=== PATIENT | female | born 1970 | race Caucasian/White ===

== ENCOUNTER → 2023-06-22 | Outpatient (CLI) | payer BC ==
--- NOTE | 2023-06-22 15:30 | P.SLEEP ---
History of Present Illness DATE: 06/22/2022 CONSULTATION/NEW PATIENT EVALUATION HISTORY OF PRESENT ILLNESS/SLEEP-WAKE EVALUATION: 53-year-old lady had been evaluated to sleep center had been evaluated in the sleep center for possible obstructive sleep apnea hypopnea syndrome. SLEEP SCHEDULE: Usually sleep schedule from 11 PM to 6:30 AM on weekdays and from midnight until 8:30 AM on weekend. FALLING ASLEEP: Patient has difficulties with falling asleep, although no TV in bedroom. DURING SLEEP: Patient sleeps with extremely loud snoring and wakes up from sleep more than 5 times with one episode of nocturia at night. Positive history of panic attacks. No history of hypnogogical hallucinations, sleep paralysis, or cataplexy. DURING THE DAY/WAKE STATE: In the morning patient wake up tired, has difficulties to place attention, has episodes of anxiety. [place] sleepiness scale is in normal range 6. Patient take naps on weekends. PAST MEDICAL HISTORY: Hypertension, breast cancer. PAST SURGICAL HISTORY: Bilateral mastectomy, , cholecystectomy. MEDICATIONS: Losartan 50 mg once a day, Cymbalta 30 mg once a day, amitriptyli ne 10 mg once a day, lamotil 2.5 mg twice a day. SOCIAL HISTORY: Negative for smoking, alcohol consumption occasional. FAMILY HISTORY: Hypertension, insomnia. REVIEW OF SYSTEMS: Loud snoring, multiple awakenings from sleep. No fevers. No double vision. No recent chest pain. No shortness of breath. No abdominal pain. No bleeding episodes. No blood in urine. No seizure episodes. PHYSICAL EXAMINATION: GENERAL: A pleasant patient without any distress. VITAL SIGNS: BP 156/72 , HR 122 , RR 12 , weight 211.0 pounds, height 5 foot 3 inches, body mass index 37.5 . HEENT: PERRLA, EOMI. Evaluation of oropharynx showed tongue protrudes midline, low position of soft palate Mallampati 3, retrognathia about 3 mm. NECK: Supple. No JVD. Thyroid is not palpable. 15 inches in circumference. LUNGS: Clear to percussion and to auscultation. Good air exchange. No wheezing or rhonchi. HEART: S1, S2 regular. No murmurs, gallops or rubs. ABDOMEN: Soft and nontender. Bowel sounds are present. No organomegaly appreciated. EXTREMITIES: No clubbing or cyanosis. MIRROR MAKER: Awake, alert, and oriented x3. Cranial nerves 2 to 7 intact. There is no fasciculation or atrophy noted. No focal deficits observed. ASSESSMENT: 1. Loud snoring, multiple awakenings from sleep, low position of soft palate Mallampati 3. Obstructive sleep apnea hypopnea syndrome. 2. Obesity, BMI 37.5. 3. History of right breast cancer, status post bilateral mastectomy. 4. Hypertension. 5 status post cholecystectomy. 6 . Status post . 7. 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 PLAN: 1. Polysomnography for evaluation of patient's breathing during sleep. 2. Following plan after reviewing sleep study. 3. Preferable position during sleep on the side. 4. No driving if patient feels any sleepiness. Patient is aware of civil and criminal liability for unsafe driving. 5. Sleep hygiene with regular sleep time for at least 7.5-8 hours. 6. Watching weight. 7. Psychological techniques for treatment of insomnia should include stools control, paradoxical intentioned, worry time, no watching clock. Thank you very much for referring this patient for consultation. Sincerely, Jason Bliss MD, PhD, FAASM. Diplomat of [place], Sleep Medicine Board by [employer] [employer] Billet Shearer of [facility] [place] Sleep Note - Sleep Note Sleep Note: Temperature: Pulse Rate: Respiratory Rate: Blood Pressure: SpO2: Height: Weight: BMI: Neck Circumference:
== END ==
LOC: 3 N SLEEP 14:33
PROVIDERS: ATTEND Internal Medicine
DX: G47.33 Obstructive sleep apnea (adult) (pediatric) (principal); E66.9 Obesity, unspecified; G47.10 Hypersomnia, unspecified; I10 Essential (primary) hypertension; Z90.49 Acquired absence of other specified parts of digestive tract; Z90.11 Acquired absence of right breast and nipple; Z85.3 Personal history of malignant neoplasm of breast; Z90.12 Acquired absence of left breast and nipple; R09.2 Respiratory arrest; Z68.37 Body mass index [BMI] 37.0-37.9, adult
CPT/HCPCS: 99202

== ENCOUNTER 2023-07-24 20:16 | Outpatient (CLI) | payer BC ==
--- NOTE | 2023-07-26 14:47 | P.PCN ---
Description of Procedure: POLYSOMNOGRAPHY REPORT PROCEDURE(S)/DATE(S): Polysomnography to 05/31/2024 CLINICAL: Patient has been seen in the sleep center for evaluation of obstructive sleep apnea-hypopnea syndrome. Please see my consultation. Sleep study has been done for evaluation of patient breathing during the sleep. PROCEDURE: The standard montage for clinical polysomnography included the electroencephalogram, the electrooculogram, the mentalis surface electromyography and Lead II cardiography. The respiratory battery consisted of measurements of nasal/buccal air flow, pressure transducer measurements from nose, thoracic and/or abdominal effort and intercostal surface electromyography. Video monitoring has been done to check for any parasomnia events. Nocturnal oxyhemoglobin saturations were obtained by finger oximetry. Step-rodriguez titration with positive airway pressure was utilized to control the respiratory events, if necessary. RESULTS: During the diagnostic sleep study sleep efficiency was decreased to 80.2 %. Latency to sleep onset was significantly prolonged to 41.0 min. Sleep architecture showed stage NI was borderline 8.3 %, Delta sleep was normal 7.0 %, REM sleep was short 9.2 %. Respiratory channel showed 0 obstructive apneas, 1 mixed apneas, 0 central apneas, 83 hypopneas with lowest oxygen level 76%. Total apnea hypopnea index was 16.1. Heart rate was in the range between 75 and 85, average 78. EMG showed 18.9 periodic limb movements per hour with 1.0 micro-arousals per hour. IMPRESSIONS: 1. Moderate Obstructive sleep apnea hypopnea syndrome. 2. Periodic limb movements have been documented. Please see other impressions from consultation PLAN: 1. The patient will have PAP titration for correction of respiratory abnormalities during the sleep. 2. Losing weight program. 3. Sleep hygiene with regular time in bed for at least 7-1/2 hours. 4. No driving if feeling sleepiness. 5. Please check iron profile including ferritin level. Low level of iron may increase the risk for periodic limb movements. Thank you very much for allowing me to participate in the management of your patient. Sincerely, Jason Bliss MD, PhD, FAASM. Diplomat of [employer], Sleep Medicine Board by [employer] Venue Manager of [facility] [place]
== END 2023-07-25 05:20 | disposition home or self-care (01) ==
LOC: 3 N SLEEP 20:16
PROVIDERS: ATTEND Internal Medicine
DX: G47.33 Obstructive sleep apnea (adult) (pediatric) (principal); G47.61 Periodic limb movement disorder
CPT/HCPCS: 95810

== ENCOUNTER 2023-08-09 19:45 | Outpatient (CLI) | payer BC ==
--- NOTE | 2023-08-10 18:43 | P.PCN ---
Description of Procedure: CLINICAL: Titration with positive air pressure has been done for correction of respiratory abnormalities during sleep. DESCRIPTION OF PROCEDURE: The standard montage for clinical polysomnography included the electroencephalogram, the electrocardiogram, the mentalis surface electromyography and Lead II cardiography. The respiratory battery consisted of measurements of nasal /buccal air flow, pressure transducer measurements from the nose, thoracic and /or abdominal effort and intercostal surface electromyography. Video monitoring has been done to check for any parasomnia events. Nocturnal oxyhemoglobin saturations were obtained by finger oximetry. Step-rodriguez titration with positive airway pressure was utilized to control respiratory events. Raw data of sleep recording has been reviewed and is adequate. RESULTS: Sleep efficiency was decreased to 79.8 %. Latency to sleep onset was borderline 28.5 minutes.]. Sleep architecture showed stage N1 was normal 5.6 %, Delta sleep was normal 17.9 %, REM sleep was decreased to 10.3 %. Heart rate was minimum 73 BPM, maximum 84 BPM, average 77 BPM. EMG showed 42.7 periodic limb movements per hour with 1.6 micriarousals per hour. PAP titration have been done with CPAP up to the pressure 11 cm H2O. The best results were at the pressure 11 cm H2O. Apnea hypopnea index reduced to 2.1. IMPRESSION: 1. Obstructive sleep apnea hypopnea syndrome on controle with CPAP treatment. 2. Significant periodic limb movements have been documented. Please see other impressions from consultation. PLAN: 1. The patient will have treatment with positive air pressure equipment with the level of pressure AutoPAP 6-12 cm H2O and should use it every night for the whole night. 2. Watching and losing weight. 3. Sleep hygiene with regular time in bed for at least 8 hours. 4. No driving if feeling any sleepiness. 5. I will see the patient for follow up visit to explain the results of the test, recommendations, check compliance with treatment and make any necessary adjustment related to mask fitting, pressure and humidification. 6. Please check iron profile including ferritin level. Low level of iron may increase risk for periodic limb movements Thank you very much for allowing me to participate in the management of your patient. Sincerely, Jason Bliss MD, PhD, FAASM Diplomat of [place] [employer] Sleep Medicine Board of [place] [employer] Telemetry Technician of [facility] [place]
== END 2023-08-10 05:30 | disposition home or self-care (01) ==
LOC: 3 N SLEEP 19:45
PROVIDERS: ATTEND Internal Medicine
DX: G47.33 Obstructive sleep apnea (adult) (pediatric) (principal); G47.61 Periodic limb movement disorder
CPT/HCPCS: 95811

== ENCOUNTER → 2023-11-02 | Outpatient (CLI) | payer BC ==
[2023-11-02 15:59] VITALS: BP 138/102; PULSE 104; RESP 16; TEMP 98
--- NOTE | 2023-11-02 16:08 | P.PROGSL ---
Subjective DATE: 11/02/2023 FOLLOW UP VISIT. Patient with obstructive sleep apnea hypopnea syndrome return to sleep center for follow-up visit. Recently patient had sleep study which documented obstructive sleep apnea hypopnea syndrome. Patient was initiated on PAP therapy and today is first visit after treatment was started. Patient was able to use PAP equipment every night for the whole night. The patient does not have significant problems with the mask, PAP pressure and humidification. [place] sleepiness scale is 6, which is normal. I checked information from PAP unit. PAP unit pressure 5-12, average 10.3 cm H2O. Usage is 100% and 90% for more then 4 hours, average 6 hours per night. Leak is 9.3 l/m, which is in acceptable range. Apnea Hypopnea Index is 1.5, which is normal. MEDICATIONS: Please see below During physical exam: GENERAL: A pleasant patient without any distress. VITAL SIGNS: Please see below, weight 209 pounds. HEENT: PERRLA, EOMI.low position of soft palate, Mallapati 3. NECK: Supple. No JVD. LUNGS: Clear to percussion and to auscultation. Good air exchange. No wheezing or rhonchi. HEART: S1, S2 regular. ABDOMEN: Soft and nontender.[] EXTREMITIES: No clubbing or cyanosis. PRODUCT ARCHITECT: Awake, alert, and oriented x3. No focal deficit. Impressions: 1. Obstructive sleep apnea-hypopnea syndrome. Patient demonstrated great compliance with treatment, benefiting from treatment. 2. Hypertension. 3. Mild obesity. 4. History of right breast cancer, status post bilateral mastectomy. 5. Status post cholecystectomy. 6. History of psychophysiological insomnia. 7. Status post . Plan: 1. Continue using PAP equipment every night for the whole night. 2. To change air filter at least 1-2 times per month. 3. PAP unit should stay lower then position of the head. 4. Advised patient to remove all remaining water from humidifier canister daily and make it dry after each usage. Refill canister with fresh distilled water before each usage. 5. Sleep hygiene with regular time in bed for at least 8 hours. 6. Precautions related to driving. No driving if feel any sleepiness. 7. I will maintain prescription for PAP supplies including mask, tube, filters. 8. Follow up visit in 6 months or earlier if patient has any problems. 9. Watching and losing weight. Thank you very much for allowing me to participate in the management of your patient. Jason Bliss MD, PhD, FAASM. Diplomat of [place] [employer], Sleep Medicine Board by [employer] Hand Mold Maker of [facility] [place] Objective - Vital Signs Vital Signs: Vital Signs Temp 98 F 11/02/23 15:45 Pulse 104 H 11/02/23 15:45 Resp 16 11/02/23 15:45 BP 138/102 11/02/23 15:45 Pulse Ox 98 11/02/23 15:45 FiO2 Intake & Output 11/01/23 11/02/23 11/02/23 18:59 06:59 18:59 Weight 94.801 kg
== END ==
LOC: 3 N SLEEP 15:21
PROVIDERS: ATTEND Internal Medicine
DX: G47.33 Obstructive sleep apnea (adult) (pediatric) (principal); I10 Essential (primary) hypertension; E66.9 Obesity, unspecified; F51.04 Psychophysiologic insomnia; Z85.3 Personal history of malignant neoplasm of breast; Z98.890 Other specified postprocedural states; Z90.49 Acquired absence of other specified parts of digestive tract; Z90.13 Acquired absence of bilateral breasts and nipples; Z99.89 Dependence on other enabling machines and devices; Z68.37 Body mass index [BMI] 37.0-37.9, adult
CPT/HCPCS: 99212

== ENCOUNTER → 2024-06-27 | Outpatient (CLI) | payer BC ==
[2024-06-27 16:45] VITALS: BP 142/89; PULSE 108; RESP 16; TEMP 98.2
--- NOTE | 2024-06-27 16:56 | P.PROGSL ---
Subjective DATE: 06/27/2024 FOLLOW UP VISIT. Patient with obstructive sleep apnea hypopnea syndrome return to sleep center for follow-up visit. Information from previous visit have been reviewed. Patient is using PAP equipment every night for the whole night, getting PAP supplies in time. The patient does not have significant problems with the mask, PAP unit and humidification. [place] sleepiness scale is 4, which is normal. I checked information from PAP unit. PAP unit pressure 6-12, average 10.2 cm H2O. Usage is 90% for more then 4 hours, average 6.6 hours per night. Leak is 18 l/m, which is in acceptable range. Apnea Hypopnea Index is 1.5, which is normal. MEDICATIONS have been reviewed, please see below. During physical exam: GENERAL: A pleasant patient without any distress. VITAL SIGNS: Please see below, weight is 229 lbs. HEENT: PERRLA, EOMI.low position of soft palate, Mallapati 3. NECK: Supple. No JVD. LUNGS: Clear to percussion and to auscultation. Good air exchange. No wheezing or rhonchi. HEART: S1, S2 regular. ABDOMEN: Soft and nontender. Obese EXTREMITIES: No clubbing or cyanosis. QUALITY CONTROL LEAD: Awake, alert, and oriented x3. No focal deficit. Impressions: 1. Obstructive sleep apnea-hypopnea syndrome. Patient demonstrated great compliance with treatment, benefiting from treatment. 2. Obesity, BMI 40.3, patient increased weight on 20 pounds comparing with previous visit. 3. Hypertension. 4. History of right breast cancer, status post bilateral mastectomy. 5. History of psychophysiological insomnia. 6. Status post . 7. Status post cholecystectomy. Plan: 1. Continue using PAP equipment every night for the whole night. 2. Sleep hygiene with regular time in bed for at least 7.5-8 hours 3. PAP unit should stay lower then position of the head. 4. Advised patient to remove all remaining water from humidifier canister daily and make it dry after each usage. Refill canister with fresh distilled water before each usage. 5. Watching and losing weight. 6. Precautions related to driving. No driving if feel any sleepiness. 7. I will maintain prescription for PAP supplies including mask, tube, filters. 8. Follow up visit in 8 months or earlier if patient has any problems. Thank you very much for allowing me to participate in the management of your patient. Jason Bliss MD, PhD, FAASM. Diplomat of [place] [employer], Sleep Medicine Board by [employer] Cranberry Sorter [facility] [place] Objective - Vital Signs Vital Signs: Vital Signs Temp 98.2 F 06/27/24 16:44 Pulse 108 H 06/27/24 16:44 Resp 16 06/27/24 16:44 BP 142/89 06/27/24 16:44 Pulse Ox 96 06/27/24 16:44 FiO2 Intake & Output 06/26/24 06/27/24 06/27/24 18:59 06:59 18:59 Weight 103.873 kg Home Medications: Home Medications Medication Instructions Recorded Confirmed Type DULoxetine HCL [Cymbalta] 30 mg PO DAILY 06/27/24 06/27/24 History Losartan [Cozaar] 50 mg PO DAILY 06/27/24 06/27/24 History
== END ==
LOC: 3 N SLEEP 16:29
PROVIDERS: ATTEND Internal Medicine
DX: G47.33 Obstructive sleep apnea (adult) (pediatric) (principal); E66.01 Morbid (severe) obesity due to excess calories; I10 Essential (primary) hypertension; Z68.41 Body mass index [BMI] 40.0-44.9, adult; Z80.3 Family history of malignant neoplasm of breast; Z90.13 Acquired absence of bilateral breasts and nipples; Z48.89 Encounter for other specified surgical aftercare; Z90.49 Acquired absence of other specified parts of digestive tract
CPT/HCPCS: 99212